=== PATIENT | female | born 1995 | race Caucasian/White ===

== ENCOUNTER 2019-08-14 00:02 | Emergency (ER) | payer OTHER ==
[~2019-08-14] VITALS: Ht 157.5 cm; Wt 58.2 kg
[2019-08-14] MEDS ORDERED: HYDR-3363 PO (00:13)
[2019-08-14] MEDS ORDERED: DOXY100C PO (00:13)
[2019-08-14] MEDS ORDERED: ZOFR4TAB16 PO (00:13)
[2019-08-14] MEDS ORDERED: PANT40TA3 PO (00:13)
[2019-08-14] MEDS ORDERED: BUPR50TA PO (00:13)
[2019-08-14] MEDS ORDERED: SUCRALFATE SUSP 1GM/10ML UD PO ONE (01:00)
[2019-08-14 01:04] LABS: BASO % 0.5 % (0.0-1.0); EOS # 0.2 10^3/uL (0.0-0.5); EOS % 1.9 % (0.0-3.0); HEMATOCRIT 36.7 % (36.0-47.0); HEMOGLOBIN 11.8 g/dl (12.0-15.5); LYMPH % 48.1 % (24.0-44.0); MEAN CORPUSCULAR HEMOGLOBIN 28.3 pg (27.0-33.0); MEAN CORPUSCULAR HGB CONC 32.2 g/dl (32.0-36.5); MONO # 0.6 10^3/uL (0.0-0.8); NEUTROPHILS # 3.5 10^3/uL (1.5-8.5); NEUTROPHILS % 42.3 % (36.0-66.0); PLATELET COUNT, AUTOMATED 232 10^3/uL (150-450); RED BLOOD COUNT 4.17 10^6/uL (4.00-5.40); WHITE BLOOD COUNT 8.3 10^3/uL (4.0-10.0)
[2019-08-14 01:07] LABS: APPEARANCE, URINE CLEAR (CLEAR); BACTERIA, URINE AUTO NEGATIVE (NEGATIVE); BILIRUBIN, URINE AUTO NEGATIVE (NEGATIVE); BLOOD, URINE BLOOD NEGATIVE (NEGATIVE); COLOR, URINE YELLOW (YELLOW); GLUCOSE, URINE (UA) AUTO NEGATIVE (NEGATIVE); KETONE, URINE AUTO NEGATIVE (NEGATIVE); LEUKOCYTE ESTERASE, URINE AUTO NEGATIVE (NEGATIVE); MUCUS, URINE SMALL (NEGATIVE); NITRITE, URINE AUTO NEGATIVE (NEGATIVE); PROTEIN, URINE AUTO NEGATIVE (NEGATIVE); RBC, URINE AUTO 3 /HPF (0-3); SPECIFIC GRAVITY URINE AUTO 1.013 (1.002-1.035); SQUAMOUS EPITHELIAL CELL UR AU 0 /HPF (0-6); UROBILINOGEN, URINE AUTO 0.2 mg/dL (0.0-2.0); WBC, URINE AUTO 0 /HPF (0-3)
[2019-08-14 01:23] LABS: HCG, SERUM QUALITATIVE NEGATIVE (NEGATIVE)
[2019-08-14 01:26] LABS: ALBUMIN 4.1 GM/DL (3.2-5.2); ALT/SGPT 16 U/L (12-78); BILIRUBIN,DIRECT 0.1 MG/DL (0.0-0.2); BILIRUBIN,TOTAL 0.2 MG/DL (0.2-1.0); BLOOD UREA NITROGEN 13 MG/DL (7-18); CALCIUM LEVEL 9.3 MG/DL (8.5-10.1); CARBON DIOXIDE LEVEL 28 MEQ/L (21-32); CHLORIDE LEVEL 106 MEQ/L (98-107); CREATININE FOR GFR 0.81 MG/DL (0.55-1.30); GLOMERULAR FILTRATION RATE > 60.0 (>60); GLUCOSE, FASTING 99 MG/DL (70-100); LIPASE 130 U/L (73-393); SODIUM LEVEL 140 MEQ/L (136-145); TOTAL PROTEIN 6.8 GM/DL (6.4-8.2)
--- NOTE | 2019-08-14 02:57 | REPVR ---
PROCEDURE INFORMATION: Exam: US Abdomen Complete Exam date and time: 08/14/2019 1:15 AM Clinical history: 24 years old, female; Abdominal pain; Epigastric TECHNIQUE: Imaging protocol: Real-time ultrasound of the abdomen with image documentation. COMPARISON: No relevant prior studies available. FINDINGS: Liver: Normal. No mass. Gallbladder: Contracted gallbladder. No gallstones.Gallbladder wall thickness is normal measuring 2.6 mm. No pericholecystic fluid. No sonographic Bettencourt's sign. Common bile duct: Common bile duct is normal measuring 4.2 mm. Pancreas: Visualized pancreas is unremarkable. Right kidney: Right kidney measures 11.3 cm with medullary sponge appearance. Left kidney: Left kidney measures 12.9 cm with medullary sponge appearance. Spleen: The spleen is unremarkable measuring 9.6 mm. Aorta: The visualized aorta is unremarkable. Inferior vena cava: Normal. Intraperitoneal space: No free fluid. IMPRESSION: Suggestion of bilateral medullary sponge kidneys. No hydronephrosis or stones. Contracted gallbladder. Electronically signed by: Daniela Rivera On 08/14/2019 02:56:42 AM
[2019-08-14 04:10] VITALS: BP 100/49
[2019-08-14] MEDS ORDERED: traMADol 50 MG TAB (BULK 4 TAB ED) PO ONE (04:15)
== END 2019-08-14 04:19 | disposition home or self-care (01) ==
LOC: M ED 00:02
DX: R10.9 Unspecified abdominal pain (principal); R93.89 Abnormal findings on diagnostic imaging of other specified body structures; F33.9 Major depressive disorder, recurrent, unspecified; F17.200 Nicotine dependence, unspecified, uncomplicated; Z79.899 Other long term (current) drug therapy; Z88.5 Allergy status to narcotic agent

== ENCOUNTER 2019-08-16 23:28 | Emergency (ER) | payer OTHER ==
[~2019-08-16] VITALS: Ht 157.5 cm; Wt 58.2 kg
[~2019-08-16 23:28] MED LIST: BUPR50TA PO; DOXY100C PO; HYDR-3363 PO; PANT40TA3 PO; ZOFR4TAB16 PO
[2019-08-16] MEDS ORDERED: TRAM50TA2 PO (23:34)
[2019-08-17] MEDS ORDERED: ONDANSETRON 4MG/2ML VIAL (J2405) IV ONE (01:00)
[2019-08-17] MEDS ORDERED: MORPHINE 4 MG/ML 1ML VIAL/SYRINGE (J2270) IV ONE (01:00)
[2019-08-17] MEDS ORDERED: NS 1,000 ML IV ONE (01:00)
[2019-08-17 01:11] LABS: BASO % 0.4 % (0.0-1.0); EOS % 1.4 % (0.0-3.0); HEMATOCRIT 37.8 % (36.0-47.0); HEMOGLOBIN 12.3 g/dl (12.0-15.5); LYMPH # 3.2 10^3/uL (1.5-5.0); LYMPH % 40.4 % (24.0-44.0); MEAN CORPUSCULAR HEMOGLOBIN 28.3 pg (27.0-33.0); MEAN CORPUSCULAR HGB CONC 32.5 g/dl (32.0-36.5); MEAN CORPUSCULAR VOLUME 87.1 fl (80.0-96.0); MONO % 7.5 % (0.0-5.0); NEUTROPHILS % 50.2 % (36.0-66.0); PLATELET COUNT, AUTOMATED 249 10^3/uL (150-450); RED BLOOD COUNT 4.34 10^6/uL (4.00-5.40); WHITE BLOOD COUNT 7.9 10^3/uL (4.0-10.0)
[2019-08-17 01:12] LABS: EOS # 0.1 10^3/uL (0.0-0.5); MONO # 0.6 10^3/uL (0.0-0.8)
[2019-08-17 01:40] LABS: ALBUMIN 4.1 GM/DL (3.2-5.2); ALT/SGPT 16 U/L (12-78); BILIRUBIN,TOTAL 0.2 MG/DL (0.2-1.0); BLOOD UREA NITROGEN 13 MG/DL (7-18); CALCIUM LEVEL 9.3 MG/DL (8.5-10.1); CARBON DIOXIDE LEVEL 27 MEQ/L (21-32); CHLORIDE LEVEL 108 MEQ/L (98-107); GLOMERULAR FILTRATION RATE > 60.0 (>60); GLUCOSE, FASTING 103 MG/DL (70-100); LIPASE 119 U/L (73-393); SODIUM LEVEL 142 MEQ/L (136-145)
[2019-08-17 02:23] LABS: HCG, SERUM QUANTITATIVE < 1.0 MIU/ML
[2019-08-17] MEDS ORDERED: KETOROLAC 30 MG/ML VIAL (J1885) IV ONE (02:45)
--- NOTE | 2019-08-17 03:39 | REPVR ---
PROCEDURE INFORMATION: Exam: US Pelvis Complete, Transabdominal Exam date and time: 08/17/2019 3:06 AM Clinical history: 24 years old, female; Pelvic pain; Additional info: Rlq pain, PT tender over ovary TECHNIQUE: Imaging protocol: Real-time transabdominal pelvic ultrasound with image documentation. Complete exam. COMPARISON: No relevant prior studies available. FINDINGS: Uterus/cervix: 10 x 4.9 x 5.9 cm uterus with 4.7 mm thick endometrium. Couple small echogenic foci within the endometrium. Right adnexa: 5 x 3.8 x 3.9 cm right ovary with normal low resistive waveforms. Right ovary contains a 2.9 x 2.9 x 3.2 cm mildly complex cyst. Left adnexa: 2.1 x 1.6 x 1.6 cm left ovary with normal follicular architecture and blood flow. Free fluid: None. Bladder: Normal. Other findings: Possibly a hemorrhagic, or involuting cyst. IMPRESSION: Right ovary contains a 2.9 x 2.9 x 3.2 cm mildly complex cyst. Possibly a hemorrhagic, or involuting cyst. Electronically signed by: Carlos De Jesus On 08/17/2019 03:39:08 AM
[2019-08-17] MEDS ORDERED: traMADol 50 MG TAB (BULK 4 TAB ED) PO ONE (04:00)
[2019-08-17 04:44] VITALS: BP 98/60
== END 2019-08-17 04:46 | disposition home or self-care (01) ==
LOC: M ED 23:28
DX: N83.201 Unspecified ovarian cyst, right side (principal); Z88.5 Allergy status to narcotic agent; Z79.899 Other long term (current) drug therapy
CPT/HCPCS: 76830; 76856; 80053; 81001; 83690; 84702; 85025; 93976; 96374; 96375; 99284; J1885; J2270; J2405